=== PATIENT | female | born 1955 | race Caucasian/White ===

== ENCOUNTER 2018-03-11 00:19 | Emergency (ER) | payer BC ==
[~2018-03-11] VITALS: Ht 157.5 cm; Wt 58.7 kg
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
[2018-03-11 01:00] VITALS: BP 161/88
[2018-03-11] MEDS ORDERED: LIDOCAINE 2% 20 ML VIAL. IJ ONE (01:00)
[2018-03-11] MEDS ORDERED: oxyCODONE/APAP 5/325 1 TAB TABLET PO ONE (01:00)
[2018-03-11] MEDS ORDERED: BUPIVACAINE PF 0.75% 10 ML VIAL IJ ONE (01:00)
[2018-03-11] MEDS ORDERED: TETANUS AND DIPHTHERIA TOX/PF 0.5 ML VIAL. VAX IM ONE (01:00)
[2018-03-11] MEDS ORDERED: OXYC-323 PO (01:14)
[2018-03-11] MEDS ORDERED: SULF1TAB24 PO (01:14)
[2018-03-11] MEDS ORDERED: BACI28.34 TP (01:14)
[2018-03-11] MEDS ORDERED: SMZ/TMP 800/160MG TABLET. PO ONE (01:15)
[2018-03-11] MEDS ORDERED: cefTRIAXone IM 1 GM VIAL IM ONE (01:30)
--- NOTE | 2018-03-11 01:30 | RAD ---
Right knee AP, lateral, oblique and patellar sunrise x-rays, 4 views HISTORY: Right knee injury. FINDINGS: Soft tissue edema with swelling and emphysema of the prepatellar tissues and also at Hoffa's fat pad and medial patellofemoral soft tissues with overlying bandage consistent with a laceration, with a 2 mm prepatellar soft tissue density which could be a small foreign body. No patellar fracture. Injury of the patellar tendon or medial patellofemoral ligament is not excluded given the soft tissue swelling and emphysema crossing the density of the tendon and ligament. No fracture of the femoral condyles, tibial plateaus or proximal fibula. No dislocation. IMPRESSION: No acute osseous injury. Soft tissue injury of the anterior knee as described above. Electronically signed by: Eduard Bravo MD (03/11/2018 1:27 AM) [id number]
[2018-03-11] MEDS ORDERED: START PACK - traMADol 1 STARTPACK TABLET PO ONE (01:45)
== END 2018-03-11 01:47 | disposition home or self-care (01) ==
LOC: ER 00:19
DX: S81.012A Laceration without foreign body, left knee, initial encounter (principal); S50.12XA Contusion of left forearm, initial encounter; S70.02XA Contusion of left hip, initial encounter; S90.32XA Contusion of left foot, initial encounter; S90.31XA Contusion of right foot, initial encounter; S90.415A Abrasion, left lesser toe(s), initial encounter; S90.414A Abrasion, right lesser toe(s), initial encounter; Z88.1 Allergy status to other antibiotic agents; V29.3XXA Motorcycle rider (driver) (passenger) injured in unspecified nontraffic accident, initial encounter; Y93.55 Activity, bike riding; Y99.8 Other external cause status; Y92.89 Other specified places as the place of occurrence of the external cause
CPT/HCPCS: 73564; 90471; 90714; 96372; 99284; J0696; J3490; J2001